=== PATIENT | female | born 1965 | race Caucasian/White ===

== ENCOUNTER 2016-12-18 22:40 | Emergency (ER) | payer OTHER ==
[2016-12-18 22:48] VITALS: BP 128/77; PULSE 92; TEMP 97.6; BMI 24.3
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
[2016-12-18] MEDS ORDERED: IBUPROFEN 600 MG TABLET (FP) PO ONE (23:57)
--- NOTE | 2016-12-19 00:06 | PDOC ---
[id number] 99 12/18/16 22:44 12/18/16 22:44 12/18/16 22:44 12/18/16 22:44 12/18/16 22:44 Medical Decision Making - Medical Decision Making 12/19/16 00:01 Pt seen by the Advanced Practice Provider under my direct supervision Ancillary studies reviewed I agree with plan as outlined by the Advanced Practice Provider HAYES Diaz *DC/Admit/Observation/Transfer Diagnosis at time of Disposition: Fracture, finger, distal phalanx, Dislocated finger - Discharge Dispostion Disposition: HOME Condition at time of disposition: Stable - Referrals Referrals: Jordan Byers MD [Staff Physician] - Ezequiel Kearney [Primary Care Provider] - - Patient Instructions Printed Discharge Instructions: Finger Fracture, Finger Dislocation
[2016-12-19] MEDS ORDERED: IBUPROFEN 600 MG TABLET (FP) PO ONE (00:18)
== END 2016-12-19 01:07 | disposition home or self-care (01) ==
LOC: JER 22:40
DX: S62.522A Displaced fracture of distal phalanx of left thumb, initial encounter for closed fracture (principal); I10 Essential (primary) hypertension; E78.00 Pure hypercholesterolemia, unspecified; E11.9 Type 2 diabetes mellitus without complications; Z79.84 Long term (current) use of oral hypoglycemic drugs; V43.52XA Car driver injured in collision with other type car in traffic accident, initial encounter; W22.11XA Striking against or struck by driver side automobile airbag, initial encounter; Y92.414 Local residential or business street as the place of occurrence of the external cause; Y93.89 Activity, other specified
CPT/HCPCS: 73130-TC-LT; 99282-25